=== PATIENT | male | born 1985 | race Caucasian/White ===

== ENCOUNTER 2016-06-11 15:38 | Inpatient (IN) | payer MEDICARE, MEDICAID ==
[~2016-06-11] VITALS: Ht 172.7 cm; Wt 117.7 kg
--- NOTE | 2016-06-15 08:29 | CO ---
ADMIT: 06/11/2016 RM/LOC: 401 [facility] MR#: [id number] [address] [address] MORRIS CARLTON [address] [place] [address] Consultation SEX: M AGE: 30 : 1985 DATE OF CONSULTATION: 06/12/2016 ATTENDING PHYSICIAN: Marcell Gupta CONSULTING PHYSICIAN: Daniel Arteaga MD HISTORY OF PRESENT ILLNESS: This is a 30-year-old male seen in surgical consultation for Dr. Gupta for possible small bowel obstruction. Morris has significant mental illness history with bipolar disorder, intermittent explosive disorder, anxiety, and also suffers from deafness. He was admitted last night with complaints of abdominal pain. He has had this with nausea and vomiting intermittently over the last six weeks. He had been evaluated three times for similar symptoms in [facility] over that same time frame. He had an EGD in [place]. He reported to his mother that he had not had a bowel movement in five days. He came to the ER last night with those complaints and was evaluated with CT scan. This showed dilated loops of small bowel with massively dilated stomach. Nasogastric tube decompression was performed with over 3 L of aspirate return. Today, he reports he feels some better since the nasogastric tube was placed. He has had a small amount of flatus this morning, but no bowel movement yet. He does suffer from chronic constipation and uses laxatives routinely for this. He denies ever having had surgery on his abdomen and his mother reports the same for him. PAST MEDICAL HISTORY: 1. Deafness. 2. Bipolar disorder. 3. Intermittent explosive disorder. 4. Gastroesophageal reflux disease. 5. Chronic constipation. 6. Anxiety. 7. Restless legs syndrome. PAST SURGICAL HISTORY: Right cochlear implant. MEDICATIONS: Medications as an outpatient are: 1. Magnesium citrate. 2. Fleets enema. 3. Strattera. 4. Carafate. 5. Zolpidem. 6. Amitriptyline. 7. Gabapentin. 8. Hydroxyzine. 9. Lorazepam. 10.Olanzapine. 11.Omeprazole. ALLERGIES: DILAUDID, NSAIDS, TRAMADOL, AND PREDNISONE. ADMIT: 06/11/2016 RM/LOC: 401 [facility] MR#: [id number] 2620 [facility] [address] [place], [place] [address] MORRIS CARLTNO [address] [place] [address] Consultation SEX: M AGE: 30 : 1985 SOCIAL HISTORY: Denies tobacco, alcohol, or illegal drug use. He lives independently with his mother as his supportive caregiver. FAMILY HISTORY: Reviewed and noncontributory. REVIEW OF SYSTEMS: A 10-point review of systems is performed. Those symptoms mentioned in the history of present illness are the only positives. PHYSICAL EXAMINATION: GENERAL: Morris is alert, oriented, and appears in no acute distress. HEENT: Sclerae appear anicteric. VITAL SIGNS: Stable, and he is afebrile with only low-grade temps of 100 degrees. NECK: Supple, without lymphadenopathy. Trachea is midline. HEART: Tachycardic, S1-S2, without murmur. LUNGS: Clear to auscultation bilaterally. ABDOMEN: Slight distention, minimally tender without peritoneal sign. No palpable masses. EXTREMITIES: Calves are soft bilaterally with no clubbing, cyanosis, or edema. LABORATORY STUDIES: Sodium 143, potassium 3.8, chloride 107, carbon dioxide 28, BUN of 18, creatinine of 1.0. White blood cell count 5.7, hemoglobin of 13.5, platelet count of 216. Plain films of the abdomen today demonstrate continued dilated loops of small bowel. IMPRESSION: 1. Small bowel obstruction versus ileus. 2. Significant mental illness history. 3. Deafness. PLAN: We would recommend continued nasogastric tube decompression and IV fluid resuscitation. We would continue with these measures for the ensuing 48 hours or so. If no resolution clinically at that point, we would recommend a repeat CT scan with oral contrast to reassess for any clear transition point indicating a surgical need. We will continue to follow along for any other change in his course. I discussed this as the plan with Morris and his mother, and they agree. Daniel Arteaga MD/ shawn JOB #: [id number] CC: Marcell Gupta, Attending Physician Peyton Sorenson, Family Physician
[2016-06-19] MEDS ORDERED: CARAFATE DPS1 GM PO (11:33)
[2016-06-19] MEDS ORDERED: STRATTERA40 MG PO (11:33)
[2016-06-19] MEDS ORDERED: ATARAX-DPS25 MG PO (11:34)
[2016-06-19] MEDS ORDERED: ELAVIL-DPS25 MG PO (11:34)
[2016-06-19] MEDS ORDERED: NEURONTIN DPS300 MG PO (11:34)
[2016-06-19] MEDS ORDERED: AMBIEN DPS10 MG PO (11:34)
[2016-06-19] MEDS ORDERED: PRILOSEC DPS20 MG PO (11:35)
[2016-06-19] MEDS ORDERED: ZYPREXA5 MG PO (11:35)
[2016-06-19] MEDS ORDERED: ATIVAN-DPS1 MG PO (11:35)
[2016-06-19] MEDS ORDERED: COLACE-DPS100 MG PO (11:36)
[2016-06-19] MEDS ORDERED: TRILEPTAL300 MG PO (11:36)
[2016-06-19] MEDS ORDERED: CITROMA DPS300 ML PO (11:36)
[2016-06-19] MEDS ORDERED: FLEET ENEMA133 ML PR (11:36)
[2016-06-19] MEDS ORDERED: DUONEB DPS3 ML PO (11:37)
[2016-06-19] MEDS ORDERED: LEVAQUIN DPS500 MG PO (11:37)
[2016-06-19] MEDS ORDERED: MIRALAX PACKET17 GM PO (11:37)
--- NOTE | 2016-07-02 08:06 | ER ---
ADMIT: 06/11/2016 RM/LOC: 401 [facility] MR#: [id number] [address] [place], [place] [address] [address]IS [address] [place] [address] Emergency Room Report SEX: M AGE: 30 : 1985 DATE: 06/11/2016 HISTORY OF PRESENT ILLNESS: A 30-year-old gentleman with 24 hours' worth of vomiting, abdominal pain, and distention. He apparently has problems with constipation. His mother has been giving him laxatives, but he is becoming increasingly uncomfortable and not able to the eat or drink as everything is being vomited up. Mother describes it as black emesis. His past history is significant for recent EGD approximately 3 weeks ago done at [place] for abdominal pain. She was told that was normal. There was found to be normal. He does have a bipolar disorder with explosive features. He is deaf and requires sign language. PHYSICAL EXAMINATION: GENERAL: A 30-year-old gentleman with an obviously distended belly, appeared in mild amount of distress and anxious. LUNGS: Clear to auscultation. CARDIOVASCULAR: No murmur, but he is tachycardic. ABDOMEN: Distended, tympanic with hyperactive bowel tones. EXTREMITIES: Unremarkable. White count was 12.4. Electrolytes were significant for a glucose of 161. A CT scan of his abdomen revealed small bowel obstruction with transition in the right side of his abdomen. An NG was placed and approximately 4 L of fecal smelling fluid obtained with suction and was placed on low intermediate. IV fluids have been running since his admission in the Emergency Department. Subsequently being admitted with small bowel obstruction. Justin Haq MD/ shawn JOB #: [id number] CC: Marcell Gupta MD, Attending Physician Peyton Sorenson, Family Physician
--- NOTE | 2016-07-17 16:48 | HP ---
ADMIT: 06/11/2016 RM/LOC: 401 [facility] MR#: [id number] 2620 [facility] [address] [place], [place] [address] MORRIS CARLTON [address] [place] [address] History and Physical SEX: M AGE: 30 : 1985 DATE OF SERVICE: CHIEF COMPLAINT: Abdominal pain. HISTORY OF PRESENT ILLNESS: This is a 30-year-old male with past medical history significant for bipolar disorder, intermittent explosive disorder, anxiety, and deafness, who was admitted with abdominal pain. CT done in the ER showed a probable small-bowel obstruction. The patient says that he has had on and off abdominal pain with nausea and vomiting for about the last 6 weeks. He has been evaluated 3 times for these symptoms in the past 6 weeks in [place]. He recently had an EGD in [place] that mom said was normal other than some signs of GERD. Yesterday, he began complaining of severe abdominal pain and told his mom he had not had a bowel movement in 5 days. He tried taking MiraLAX as well as 3 Fleet Enemas and still was unsuccessful of having a BM. Last night, he tried some barbecue chicken for supper and then spent the night vomiting. Today, he has vomited more than 10 times. All have been liquid stool and the last few episodes of emesis have also shown some bright red blood mixed in it as well. He also states he has not been able to pass gas for the last few days and feels that his abdomen is very distended. He denies any fevers or any history of abdominal surgery. He has never had issues like this in the past. In the ER, an NG was placed and 4 L of stomach contents were removed. He was also given morphine and Ativan as well as Zofran and 1 L of normal saline bolus. PAST MEDICAL HISTORY: 1. Deafness. 2. Bipolar disorder. 3. Intermittent explosive disorder. 4. GERD. 5. Chronic constipation. 6. Anxiety. 7. Restless legs syndrome. PAST SURGICAL HISTORY: Right cochlear implant. MEDICATIONS: 1. Magnesium citrate p.r.n. 2. Fleet Enema p.r.n. 3. Strattera 40 mg daily. 4. Carafate 1 g p.o. q.i.d. 5. Zolpidem 10 mg p.o. at bedtime. 6. Amitriptyline 25 mg 1 to 2 tabs p.o. at bedtime. 7. Gabapentin 300 mg p.o. b.i.d. 8. Hydroxyzine 25 mg p.o. q.6 p.r.n. 9. Lorazepam 1 mg 1 to 2 tabs p.o. at bedtime p.r.n. 10.Olanzapine 15 mg p.o. b.i.d. 11.Omeprazole 20 mg 2 caps p.o. daily. ALLERGIES: DILAUDID, NSAIDS, TRAMADOL, AND PREDNISONE. ADMIT: 06/11/2016 RM/LOC: 401 [facility] MR#: [id number] [address] [address] MORRIS CARLTON [address] [place] [address] History and Physical SEX: M AGE: 30 : 1985 SOCIAL HISTORY: He denies tobacco, alcohol, or illegal drug use. He does live alone, although his mom is nearby and visits him often. FAMILY HISTORY: Noncontributory. REVIEW OF SYSTEMS: A 10-point review of systems was reviewed and negative other than that stated above in the HPI. PHYSICAL EXAMINATION: VITAL SIGNS: Blood pressure 138/92, pulse 132, respirations 16, temp 96.3, and saturating 94% on room air. GENERAL: He is alert and oriented x3. He is in mild distress with the abdominal pain. HEART: Tachy, but regular rhythm. LUNGS: Clear. ABDOMEN: Distended with mild tenderness throughout. He does have hypoactive bowel sounds noted. EXTREMITIES: No edema. LABORATORY DATA: Sodium 139, potassium 4.0, and creatinine 1.2. White count 12.4, hemoglobin 14.9, and platelets 313. Lipase was 96, ALT was 17, AST 47. CT was reviewed. ASSESSMENT AND PLAN: 1. Small bowel obstruction versus ileus. We will plan for IV fluids and n.p.o. status for tonight. Surgery has been consulted. Again, he has an NG in place. We will order morphine for pain and Zofran for nausea as well. We will repeat his labs in the morning. 2. Bipolar disorder/intermittent explosive disorder. Because of his n.p.o. Status, we will not be giving him any of his psych medications tonight, but we will cover him with p.r.nHank Atboris. Jordyn Mendoza DO Resident / Marcell Gupta MD / shawn JOB #: [id number] CC: Marcell Gupta, Attending Physician Peyton Sorenson, Family Physician
--- NOTE | 2016-07-20 10:44 | OR ---
ADMIT: 06/11/2016 RM/LOC: 401 [facility] MR#: [id number] [address] [place], [place] [address] MORRIS CARLTON [address] [place] [address] Operative/Delivery Room Report SEX: M AGE: 30 : 1985 SURGERY DATE: 06/17/2016 SURGEON: Alex Aguilera MD PREOP DIAGNOSIS: Pain with swallowing, dysphagia, and epigastric pain. POSTOPERATIVE DIAGNOSES: 1. Evidence of distal esophageal ulceration at the GE junction. 2. Mild fundus gastritis. PROCEDURE PERFORMED: EGD with biopsies. ANESTHESIA: Sedation. ESTIMATED BLOOD LOSS: None. DESCRIPTION OF PROCEDURE: After appropriate informed consent was obtained, the patient was brought to the endoscopy suite. IV sedation was provided. A well-lubricated endoscope was introduced and passed down the esophagus. The proximal and mid esophagus appeared normal. The distal esophagus though he did have about 3 small ulcerations at the GE junction. No evidence of hiatal hernia. No stricture or narrowing. No evidence of any active blood loss. The scope was advanced in the stomach. In the gastric fundus, he also had some mild fundus gastritis. No ulcerations there. The antrum appeared normal. Pylorus intubated. Duodenal bulb, second, and third portion of duodenum appeared normal. The scope was then pulled back into the stomach, retroflexed, revealing no hiatal hernia from below and again, just a mild proximal fundus gastritis. Several biopsies taken of the antrum. Biopsies also taken of the fundus. I did also take biopsies of the duodenum it should be noted. Lastly biopsies were taken at the GE junction of the area of ulcerations. The stomach was then deflated and the scope withdrawn without apparent complications. The patient tolerated the procedure well and was taken to the recovery room in stable condition. Alex Aguilera MD/ shawn JOB #: [id number] CC: Marcell Gupta, Attending Physician Peyton Sorenson, Family Physician Marcell Gupta MD
--- NOTE | 2016-08-27 15:50 | DS ---
ADMIT: 06/11/2016 RM/LOC: 401 [facility] MR#: [id number] 2620 [facility] [address] [place], [place] [address] MORRIS CARLTON [address] [place] [address] Discharge Summary SEX: M AGE: 30 : 1985 ADMISSION DATE: 06/11/2016 DISCHARGE DATE: 06/18/2016 FINAL DIAGNOSES: 1. Partial small bowel obstruction. 2. Obesity. 3. Bipolar disorder. 4. Intermittent explosive disorder. 5. Gastroesophageal reflux disease. 6. Hearing impairment. 7. Urinary retention. 8. Hypokalemia. 9. Mental disability. REASON FOR ADMISSION: This is a 30-year-old white male who is normally cared for by a nurse practitioner in [facility] who presented with a 6-week history of recurrent but yet intermittent vomiting. Got much worse over the last 24 hours. Persistent vomiting since eating dinner the previous night with severe upper abdominal pain and chest pain. Workup in the ER was consistent with at least a partial small bowel obstruction. HOSPITAL COURSE: He was admitted on 06/11/2016, kept n.p.o., started on IV fluids, IV Zofran and Phenergan for nausea, morphine for pain control, Ativan for anxiety. Surgery was consulted. He was also placed on IV Protonix. An NG was placed to low intermittent suction. He was monitored under PCU status. Enoxaparin was used for DVT prophylaxis. He did spike a temp, so we did start IV Zosyn. On 06/12 he had a rough night. He was nauseated, he was passing some gas. We started him back on his amitriptyline, hydroxyzine, olanzapine, and just clamped his NG for an hour after medications were administered. We increased his IV fluids to 50 mL/h. He was given a 500 mL bolus as his urine output was sluggish and he was tachycardic. Dr. Arteaga did follow and did not think surgery was indicated at that point. On 06/13 there was not much change, still had a lot of output through the NG. His potassium was low. This was replaced through the IV. Incentive spirometer was ordered as was DuoNeb treatments because of increased respiratory difficulty. I resumed his home dose of Strattera as well as oxcarbazepine. On 06/14 he had a bowel movement. He was in less pain, was passing gas. We changed him to telemetry status. His potassium was still low, this was replaced again through the IV. He was placed on clear liquids sparingly and then advanced diet as tolerated later that afternoon. Surgery signed off. On 06/15 he was doing better, no vomiting, a little nauseated especially after milk. We resumed his home dose of Carafate and gabapentin. We got him up, ambulated him, Physical Therapy was consulted. His Levaquin and Protonix were changed to p.o. On 06/16 he complained of some pain with swallowing. Did not have a bowel movement but was passing gas. He was started on MiraLAX 17 g b.i.d. and [place] for pain control. Surgery was reconsulted for possible EGD. On 06/17 we did have Social Work come and evaluate to reassess home needs. EGD was consistent with an esophageal ulcer as well as gastritis. On 06/18 he was tolerating regular diet. He was felt stable for discharge. ADMIT: 06/11/2016 RM/LOC: 401 [facility] MR#: [id number] [address] [place] [address] MORRIS CARLTON [address] [place] [address] Discharge Summary SEX: M AGE: 30 : 1985 DISCHARGE INSTRUCTIONS: 1. Carafate 1 g p.o. q.a.c. and at bedtime. 2. Colace 100 mg b.i.d. 3. Elavil 25 mg 1-2 every HS. 4. Levaquin 500 mg daily for a total of 12 more days. 5. MiraLax 17 g b.i.d. 6. Neurontin 300 mg b.i.d. 7. Protonix 40 mg b.i.d. 8. Strattera 40 mg daily. 9. Trileptal 300 mg b.i.d. 10.Zyprexa 10 mg 1-1/2 tab b.i.d. 11.DuoNeb treatment q.i.d. 12.Zolpidem 10 mg at bedtime. 13.Lorazepam 1 mg 1-2 t.i.d. p.r.n. 14.Mag citrate p.r.n. 15.Fleets enema p.r.n. Avoid caffeine, alcohol, and NSAIDs. CBC, CMP at follow-up visit. Regular diet. Follow up with primary care provider in 14 days, sooner if needed. Discharge of this patient took greater than 30 minutes. Marcell Gupta MD/ sara JOB #: [id number] CC: Marcell Gupta MD, Attending Physician Peyton Sorenson, Family Physician
== END 2016-06-18 11:45 | disposition home or self-care (01) | DRG 389 ==
LOC: ER 15:38 → 4PCU 17:56
PROVIDERS: ADMIT Family Medicine
DX: K56.60 Unspecified intestinal obstruction (principal); K22.10 Ulcer of esophagus without bleeding; K29.70 Gastritis, unspecified, without bleeding; F31.9 Bipolar disorder, unspecified; H91.93 Unspecified hearing loss, bilateral; F41.9 Anxiety disorder, unspecified; F60.3 Borderline personality disorder; K21.9 Gastro-esophageal reflux disease without esophagitis; G25.81 Restless legs syndrome; K59.09 Other constipation; E66.9 Obesity, unspecified; Z68.37 Body mass index [BMI] 37.0-37.9, adult; H91.90 Unspecified hearing loss, unspecified ear; R33.9 Retention of urine, unspecified; E87.6 Hypokalemia

== ENCOUNTER 2016-07-22 21:44 | Emergency (ER) | payer MEDICARE, MEDICAID ==
[~2016-07-22 21:44] MED LIST: AMBIEN DPS10 MG PO; ATARAX-DPS25 MG PO; ATIVAN-DPS1 MG PO; CARAFATE DPS1 GM PO; CITROMA DPS300 ML PO; COLACE-DPS100 MG PO; DUONEB DPS3 ML PO; ELAVIL-DPS25 MG PO; FLEET ENEMA133 ML PR; LEVAQUIN DPS500 MG PO; MIRALAX PACKET17 GM PO; NEURONTIN DPS300 MG PO; PRILOSEC DPS20 MG PO; STRATTERA40 MG PO; TRILEPTAL300 MG PO; ZYPREXA5 MG PO
--- NOTE | 2016-07-25 12:46 | ER ---
ADMIT: 07/22/2016 RM/LOC: ER [facility] MR#: [id number] [address] [place], [place] [address] MORRIS CARLTON [address] [place] [address] Emergency Room Report SEX: M AGE: 30 : 1985 DATE: 07/22/2016 PRIMARY CARE PHYSICIAN: Dr. Gupta. CHIEF COMPLAINT: Chest discomfort following episode of choking. HISTORY OF PRESENT ILLNESS: This is a 30-year-old, deaf male, who presents with his mother to the ER for evaluation following an episode of choking. The rail signal mechanic was used for the procuring of the history and physical exam. The patient states prior to arrival, he was eating some summer sausage when he began choking. Mother states she was able to clear his airway, but he continued to state he has some substernal discomfort like there was something stuck in there. The patient currently complains of chest and abdominal pain. Denies any nausea, vomiting, shortness of breath, cough, or inability to handle secretions. He was recently hospitalized for small bowel obstruction, which developed into some secondary problems following NG tube insertion and aspiration pneumonia. EGD was completed during this hospitalization revealing esophageal candidiasis for which he was treated with antifungal and has been doing well since then. PAST MEDICAL HISTORY: Significant for some behavioral issues and anxiety as well as the hospitalization as discussed above. COURSE IN THE EMERGENCY ROOM: The patient was seen and examined with the use of the rail signal mechanic. He is afebrile and nontoxic. Vital signs; blood pressure 133/87, heart rate 133, respirations 18, temperature 97. He is in moderate distress. He is extremely anxious. Mother continuously comes from the room requesting Ativan or pain medication to help with his agitation and anxiety. Exam is significant for some tenderness to palpation of the chest and the abdomen however the abdomen is soft, nondistended, and in generalized tenderness about the entire abdomen. I did proceed to get a chest x-ray, showing normal alignment of the esophagus. No evidence of any foreign body. Chest x-ray was compared to previous study and is relatively unchanged. I gave him 1 mg of Ativan IM as well as morphine 5 mg IM. Mother states that ADMIT: 07/22/2016 RM/LOC: ER [facility] MR#: [id number] [address] [address] MORRIS CARLTON [address] [place] [address] Emergency Room Report SEX: M AGE: 30 : 1985 the patient began having some itchiness, so he was given 50 mg of Benadryl p.o. IMPRESSION: Dysphagia. DISPOSITION: The patient was told to continue his home medications and to return with any worsening signs or symptoms including difficulty breathing, inability to handle secretions. He is to use Tylenol or Motrin as needed for pain and to go home and rest. He is to follow up with Dr. Gupta as needed should his pain continue. Questions were sought and answered to the best of my ability and to the patient's satisfaction. He was discharged in stable condition. GEENA Bradley / Yonis Miller MD / shaql JOB #: [id number] CC: Yonis Miller MD, Attending Physician Marcell Gupta MD, Family Physician
== END 2016-07-22 23:30 | disposition home or self-care (01) ==
LOC: ER 21:44
DX: R13.10 Dysphagia, unspecified (principal); Z88.5 Allergy status to narcotic agent

== ENCOUNTER 2016-07-29 04:49 | Emergency (ER) | payer MEDICARE, MEDICAID ==
--- NOTE | 2016-07-29 23:00 | ER ---
ADMIT: 07/29/2016 RM/LOC: ER [facility] MR#: [id number] [address] [place], [place] [address] MORRIS CARLTON [address] [place] [address] Emergency Room Report SEX: M AGE: 30 : 1985 DATE: 07/29/2016 TIME: 448 Please refer to my T-sheet for complete H and P. HISTORY OF PRESENT ILLNESS: Briefly, the patient is a 30-year-old, who is deaf, comes in with his mom. He said that he started vomiting 5 times since 10:00 p.m. It started after he ate greasy, peasy. He is not having any pain, although he rates the discomfort as 7/10 because he is nauseous. He had a little bit of diarrhea too. He has had some bowel problems in the past. He has been anxious recently, not sleeping very well. PHYSICAL EXAMINATION: VITAL SIGNS: Blood pressure 136/91, pulse 120, respirations 20, temp 98.6, saturating 98%. GENERAL: No acute distress. HEENT: Grossly normal. LUNGS: Clear. HEART: Little tachy, but regular. ABDOMEN: Soft, really nontender. Nondistended. EMERGENCY DEPARTMENT COURSE: We gave him Ativan 2 mg IM and Zofran, he was feeling much better. I had a long discussion with the spectrographer and mom and he was ready for discharge. ASSESSMENT: 1. Nausea and vomiting. 2. Anxiety. PLAN: I refilled Ativan, I gave him 20 of 1 mg tablets, Zofran 4 mg 15. I wanted him to follow up with Dr. Gupta. Return if worse, 24-hour liquid diet. Dhruv Hope MD/ shawn JOB #: [id number] CC: Dhruv Hope MD, Attending Physician Marcell Gupta MD, Family Physician
== END 2016-07-29 05:54 | disposition home or self-care (01) ==
LOC: ER 04:49
DX: R11.2 Nausea with vomiting, unspecified (principal); F41.9 Anxiety disorder, unspecified; F31.9 Bipolar disorder, unspecified

== ENCOUNTER 2016-08-05 22:54 | Emergency (ER) | payer MEDICARE, MEDICAID ==
--- NOTE | 2016-08-24 07:35 | ER ---
ADMIT: 08/05/2016 RM/LOC: ER [facility] MR#: [id number] [address] [place], [place] [address] MORRIS CARLTON [address] [place] [address] Emergency Room Report SEX: M AGE: 30 : 1985 DATE: 08/05/2016 ADDENDUM: See T-sheet for complete H and P. A 30-year-old male, who was originally seen by Kathryn Rodas, physician graduate teaching assistant, checked out to me with results of CAT scan pending. CT of the abdomen and pelvis shows no acute findings. Additionally, the patient did have some labs done in the Emergency Department. His CBC showed a white count of 11.9, hemoglobin of 12.9. His CMP was unremarkable and he had normal urine. The patient was given Ultram for pain. This pain was essentially unchanged. I do not see any findings on my examination or workup that would account for any serious condition causing his abdominal pain. He is discharged home at this time to follow up with his regular physician. DIAGNOSIS: Abdominal pain. Steven Lea MD/ shawn JOB #: [id number] CC: Steven Lea MD, Attending Physician Marcell Gupta MD, Family Physician
== END 2016-08-06 01:10 | disposition home or self-care (01) ==
LOC: ER 22:54
DX: R10.31 Right lower quadrant pain (principal); F31.9 Bipolar disorder, unspecified